=== PATIENT | female | born 1980 | race Caucasian/White ===

== ENCOUNTER 2024-07-03 19:19 | Emergency (ER) | payer BC, OTHER ==
--- OUTSIDE RECORDS SUMMARY | 2024-07-03 19:23 | XMS REPORT | Continuity of Care Document ---
Author Name Unknown Address [address] [facility]. [address] [place], [place] [id number] [place] [address] thconnect Address [address] [facility]. [address] [place] [address] Care Team Providers Care Furniture Refinisher Name Role Phone Norma Prado Attending Clinician Unavailable Referred, Self Attending Clinician Unavailable Libby Attending Clinician UnavailTi Ordonez Attending Clinician Unavailable Theresa Osborne Attending Clinician Unavaila Norma Palacios Admitting Clinician Unavailable Referred, Self Admitting Clinician Unavailable Libby Admitting Clinician Unavaila Ti Brody Admitting Clinician Unavailable Theresa Osborne Admitting Clinician Unavailshahnaz roberson Payers Payer Name Policy Type Policy Number Effective Date Expirati on Date Source SHASTA (O) [id number] 2019 00:00:00 Problems Condition Name Condition Details Condition Category Status Onset Date Resolution Date Last Treatment Date Treating Clinician Comments Source Bacterial vaginosis Bacterial Vaginosis Problem Active 06-07 00:00: 00 [facility] Atypical squamous cells of undetermin ed significan ce on cervical Papanicola ou smear Atypical Squamous Cells of Undetermin ed Significan ce on Cervical Papanicola ou Smear Problem Active 06-07 00:00: 00 [facility] Human papillomav irus deoxyribon ucleic acid detected, high risk on cervical specimen Human Papillomav irus Deoxyribon ucleic Acid Detected, High Risk on Cervical Specimen Problem Active 815 00:00: 00 [facility] Allergies, Adverse Reactions, Alerts Allergy Name Allergy Type Status Severity Reaction(s) Onset Date Inactive Date Treating Clinician Comments Source No Known Drug Allergie s DA Active U N 05-12 00:00: 00 [facility] Social History Smoking Status Start Date Stop Date Source Never Smoker [facility] Medications Ordered Medication Name Filled Medication Name Start Date Stop Date Current Medication? Ordering Clinician Indication Dosage Frequency Signature (SIG) Comments Components Source metoprolol succinate metoprolol succinate No metoprolol succinate [facility] Qunol Bruce CoQ10 Qunol Bruce CoQ10 No Qunol Bruce CoQ10 [facility] Tri-Lo-Bess Tri-Lo-Bess No Tr i-Lo-Mil i [facility] [place] Thyroid 15 mg tablet TAKE 1 TABLET BY MOUTH EVERY DAY [place] Thyroid 15 mg tablet TAKE 1 TABLET BY MOUTH EVERY DAY No [place] Thyroid 15 mg tablet TAKE 1 TABLET BY MOUTH EVERY DAY [facility] losartan 50 mg tablet TAKE 1 TABLET BY MOUTH EVERY DAY losartan 50 mg tablet TAKE 1 TABLET BY MOUTH EVERY DAY No losartan 50 mg tablet TAKE 1 TABLET BY MOUTH EVERY DAY [facility] metronidazo le 500 mg tablet TAKE 1 TABLET BY MOUTH EVERY 12 HOURS FOR 7 DAYS metronidazo le 500 mg tablet TAKE 1 TABLET BY MOUTH EVERY 12 HOURS FOR 7 DAYS No metronidaz ole 500 mg tablet TAKE 1 TABLET BY MOUTH EVERY 12 HOURS FOR 7 DAYS [facility] Tri-Lo-Bess 0.18/0.215/ 0.25 mg-25 mcg tablet TAKE 1 TABLET BY MOUTH EVERY DAY Tri-Lo-Bess 0.18/0.215/ 0.25 mg-25 mcg tablet TAKE 1 TABLET BY MOUTH EVERY DAY No Tri-Lo-Mil i 0.18/0.215 /0.25 mg-25 mcg tablet TAKE 1 TABLET BY MOUTH EVERY DAY [facility] [place] Thyroid [place] Thyroid No [place] Thyroid [facility] losartan losartan No losartan [facility] Vital Signs Vital Name Observation Time Observation Value Comments S ource BP Diastolic 2024-05-11 00:00:00 89 mm[Hg] [facility] BP Systolic 2024-05-11 00:00:00 145 mm[Hg] [facility] BMI (Body Mass Index) 2024-05-11 00:00:00 32.3 kg/m2 [facility] Body Weight 2024-05-11 00:00:00 188 [lb_av] [facility] Height 2024-05-11 00:00:00 64 [in_i] [facility] Procedures Procedure Date / Time Performed Performing Clinicia n Source Procedure on Knee 2022-10-24 00:00:00 [facility] Cholecystectomy (Gallbladder) 2016-10-24 00:00:00 [facility] Medical Encounters Start Date/Time End Date/Time Encounter Type Admission Type Attending [facility] Care Department Encounter ID Source 2024-06-15 08:00:00 2024-06-15 08:00:00 Outpatient Norma Patel [facility] SKIP [id number] 63 [facility] 2024-06-07 00:00:00 2024-06-07 00:00:00 ROB HinesP: [address], [place] [address] , Ph. [facility] [id number] [facility] 2024-05-11 00:00:00 2024-05-11 00:00:00 Ale Monteiro PA: [address], [place] [address] , Ph. [facility]* [id number] [facility] 2023-06-03 12:00:00 2023-06-03 12:00:00 Outpatient Jose Baker [facility] SKIP [id number] [facility] 2023-05-17 00:00:00 2023-05-17 00:00:00 Outpatient FOG_Burke_R Yuni AO AO [id number] [facility] 2023-05-17 00:00:00 2023-05-17 00:00:00 Outpatient FOG_Burke_R Yuni AO AO [id number] [facility] 2023-05-13 07:16:00 2023-05-13 07:16:00 Outpatient Ti Vu [facility] DAYS [id number] [facility] 2023-05-12 00:00:00 2023-05-12 00:00:00 Outpatient Radhames Morrissey AOSM AO [id number] [facility] 2023-05-11 00:00:00 2023-05-11 00:00:00 Outpatient ARABELLA_Matheus Morrissey AOSM AO [id number] [facility] 2023-05-06 00:00:00 2023-05-06 00:00:00 Outpatient Radhames Morrissey AOSM AO [id number] [facility] 2023-05-05 00:00:00 2023-05-05 00:00:00 Outpatient Radhames Morrissey AO AO [id number] [facility] 2022-05-01 12:00:00 2022-05-01 12:00:00 Outpatient ADITI OsborneTheresa [facility] SKIP [id number] [facility] Results Test Description Test Time Test Comments Results Result Co mments Source [facility] HCG [id number] 07:55:00* Test Item Value Reference Range Interpretation Comme nts UR HCG QUAL (test code = HCGQLU) NEGATIVE NEGATIVE Notes Date/Time Note Provider Source 2023-05-13 09:37:00 [facility] Brief Op Note REPORT#:[id number] REPORT STATUS: Signed DATE:05/13/23 TIME: 936 PATIENT: JORGE BENAVIDES UNIT #: [id number] ROOM/BED: : 80 AGE: 42 SEX: F ATTEND: Ti Rabago MD ADM AUTHOR: Lucy Martin * ALL edits or amendments must be made on the electronic/computer document * Op/Inv Proc Note - Brief Pre-procedure diagnosis: Left knee meniscus tear Post-procedure diagnosis: same as pre procedure dx Procedures performed: Left knee arthroscopy, partial lateral meniscectomy Primary Surgeon: Hima Machine Joint Cutter(s): Veronica HAAS Findings: as above Complications: none Estimated blood loss in ml's: none Specimens removed/altered: none at 0938 at 0943 [facility] #:[id number] [facility] 2023-05-13 09:34:00 [id number] [facility] [address] [place] [address] PATIENT NAME: JORGE BENAVIDES ADMIT DATE: 05/13/23 ACCOUNT NO: [id number] ROOM NO: AGE: 42 REPORT TYPE: OPERATIVE REPORT SEX: F ADMITTING PHYSICIAN: ATTENDING PHYSICIAN:Ti Rabago MD OPERATION DATE: 05/13/2023 PREOPERATIVE DIAGNOSIS: Left knee meniscal tear. POSTOPERATIVE DIAGNOSIS: Complex tear of posterior horn and body of lateral meniscus, left knee, S83.282A. OTHER DIAGNOSIS NOTED: A 5 mm loose body, medial gutter, left knee, M23.42. OPERATIVE PROCEDURES PERFORMED: 1. Left knee diagnostic arthroscopy with an arthroscopic partial lateral meniscectomy, 81712. 2. Arthroscopic loose body removal, 98072. SURGEON: Ti Rabago MD VOLUNTEER PATIENT REPRESENTATIVE: ERICA Martin ANESTHESIA: General. TOURNIQUET TIME: 18 minutes. ESTIMATED BLOOD LOSS: None. OPERATIVE FINDINGS: As above. SURGICAL SPECIMENS SENT: None. CLINICAL INDICATIONS: Ms. Benavides is a 42-year-old female from [place], [place], who sustained a traumatic injury to her left knee. As a result, she sustained a prominent tear of the lateral meniscus. She is admitted for arthroscopic meniscectomy. OPERATIVE NARRATIVE: 1. LEFT KNEE DIAGNOSTIC ARTHROSCOPY WITH AN ARTHROSCOPIC PARTIAL LATERAL MENISCECTOMY, 61235. 2. ARTHROSCOPIC LOOSE BODY REMOVAL, 31709. PROCEDURE IN DETAIL: Ms. Benavides was brought in the operative suite at which time she was placed in supine position on the OR table. Routine monitors were established. General anesthesia was delivered. After satisfactory induction of general anesthesia, a tourniquet was applied to the patient's left lower extremity per Ms. Martin and the leg was placed in arthroscopic leg villegas per PATIENT NAME: JORGE BENAVIDES Ms. Martin. The leg was then elevated, exsanguinated, tourniquet insufflated to 300 mmHg. The left knee was then circumferentially prepped and draped in usual sterile fashion per Ms. Martin. Anterior arthroscopic portals were established. Systematic arthroscopic evaluation performed. Patellofemoral evaluation was unremarkable. Medial gutter revealed a 5 mm loose body. The anterior medial portal was widened, the loose body was extracted through the anteromedial portal without difficulty. Medial compartment revealed no meniscal or articular cartilage pathology. The femoral notch revealed an intact anterior as well as posterior cruciate ligament. The lateral compartment revealed complex tearing involving the posterior horn and body of the lateral meniscus. This was resected to a stable configuration utilizing hand and motorized instrumentation. No chondral pathology was noted. The popliteal recess revealed no further loose bodies. Thorough lavage was then performed with lactated Ringer solution. Arthroscopic portals were closed respectively with a subcuticular 4-0 Vicryl suture per Ms. Martin. Intraarticular anesthetic injection was performed by French Veronica. Sterile dressing was applied by French Martin. Ms. Benavides was then extubated and taken to recovery room awake and alert without any anesthetic or operative complications. At the end of the case, sponge and needle counts were correct x2. During the procedure, Ms. Martin was invaluable in positioning the patient along with preparation and draping of the extremity. She was also vital in providing surgical exposure throughout the procedure in addition to closure of the postoperative incisions and application of postoperative dressing along with intra-articular anesthetic injection. Dictated By: Ti Rabago MD Date Dictated: 05/13/2023 09:34:41 Date Transcribed: 05/13/2023 10:13:48 TRINO/KRISTEL Receipt ID: [id number] Authenticated by Ti Rabago MD On 05/13/2023 10:36:15 AM at 1036 PATIENT NAME: JORGE BENAVIDES [facility] 2023-05-12 16:03:00 [id number] [facility] [address] [place] [address] PATIENT NAME: JORGE BENAVIDES ADMIT DATE: 05/13/23 ACCOUNT NO: [id number] ROOM NO: AGE: 42 REPORT TYPE: HISTORY AND PHYSICAL SEX: F ADMITTING PHYSICIAN: ATTENDING PHYSICIAN:Ti Rabago MD ADMISSION DATE: 05/13/2023 09:15:00 ADMITTING DIAGNOSIS: Left knee lateral meniscal tear. HISTORY OF PRESENT ILLNESS: Ms. Benavides is a very pleasant 42-year-old female who sustained a traumatic injury to her left knee. As a result, she has had persistent pain, swelling and catching. Her pain is not improved despite nonoperative treatment. Her clinical as well as radiographic evaluation revealed a prominent tear of the lateral meniscus along with a sprain to medial collateral ligament. She is admitted for arthroscopic meniscectomy. PAST MEDICAL HISTORY: Anxiety, hypertension and thyroid disease. PAST SURGICAL HISTORY: Include cholecystectomy and eye surgery. FAMILY HISTORY: Rheumatoid arthritis, autoimmune disease, osteoporosis and thyroid disease. SOCIAL HISTORY: She does not smoke. She drinks occasionally. ALLERGIES: NO ALLERGIES ARE LISTED. MEDICATIONS: Consist of [place] Thyroid, losartan, metoprolol, sertraline. REVIEW OF SYSTEMS: Negative. PHYSICAL EXAMINATION: VITAL SIGNS: 5 feet 4 inches tall, 81.8 kg. HEENT: Within normal limits. CARDIAC: Regular rate and rhythm. No murmur. CHEST: Clear. ABDOMEN: Benign. BACK: No CVA tenderness. EXTREMITIES: Leg lengths are equal. Full painless motion of both hips. Examination of the left knee reveals an antalgic gait. She has a trace effusion. She has 0 to 120 degrees of motion. She has pain on the medial joint line with positive Kristen sign. She has pain on valgus stress. She has no medial opening. Her distal neurovascular status is intact. DIAGNOSTIC DATA: Radiographic evaluation including an MRI scan demonstrated a prominent tear of the lateral meniscus with grade I sprain to the MCL. PATIENT NAME: JORGE BENAVIDES ASSESSMENT: Symptomatic lateral meniscal tear involving the left knee. SURGICAL PLAN: To proceed with a diagnostic arthroscopy and meniscectomy. I have gone over at length with the patient the associated risks involved with this procedure. She understands that these risks include but not limited to bleeding, infection, neurovascular damage, recurrence of the tear, posttraumatic arthritis, deep vein thrombi leading to pulmonary emboli along with complications secondary to anesthesia. Furthermore, she understands that there are absolutely no guarantees or warranties that she will be pain free as a result of the procedure. All questions have been answered. Informed consent was obtained for left knee arthroscopic meniscectomy. Dictated By: Ti Rabago MD Date Dictated: 05/12/2023 16:03:41 Date Transcribed: 05/12/2023 18:51:30 TRINO/LUIZ Receipt ID: [id number] Authenticated by Ti Rabago MD On 05/13/2023 09:44:27 AM at 0944 PATIENT NAME: JORGE BENAVIDES [facility]
[2024-07-03] MEDS ORDERED: ASPIRIN 81 MG CHEWABLE TABLET ONE (19:51)
[2024-07-03] MEDS ORDERED: NA CHLORIDE 0.9% 1,000 ML ONE (19:51)
[2024-07-03 19:55] LABS: Absolute Basophils 0.1 K/uL (0-0.5); Absolute Eosinophils 0.6 K/uL (0-0.5); Absolute Lymphocytes (CBC) 2.7 K/uL (0.7-4.9); Absolute Monocytes 0.7 K/uL (0.1-1.3); Absolute Neutrophil 7.7 K/uL (1.8-8.0); Basophils % 0.5 % (0-1.3); Eosinophils % 4.7 % (0-4.4); Hemoglobin 12.2 g/dL (12.0-15.0); Lymphocytes % 22.9 % (15.3-44.8); MCH 28.7 pg (27.0-35.0); MCHC 33.1 g/dL (32.0-36.0); MCV 86.7 fL (80-100); MPV 6.9 fL (7.6-11.3); Monocytes % 6.1 % (3.3-12.3); Neutrophils % 65.8 % (41.7-73.7); Platelets 254 thou/uL (152-406); RBC Red Blood Cell Count 4.27 M/uL (3.86-4.86); Red Cell Distribution Width 13.6 % (12.1-15.2)
[2024-07-03 20:19] LABS: D-Dimer 0.311 FEUug/mL (0-0.500)
[2024-07-03 20:22] LABS: ALT/SGPT 41 U/L (13-56); AST/SGOT 12 U/L (15-37); Albumin/Globulin Ratio 1.1 (1.1-1.8); Alkaline Phosphatase 52 U/L (45-117); BUN Blood Urea Nitrogen 12 mg/dL (7-18); Bicarbonate 24 mEq/L (21-32); Bilirubin Total 0.4 mg/dL (0.2-1.0); Globulin 3.8 g/dL (2.3-3.5); Glomerular Filtration Rate 105 ml/min (=/>90); Glucose Level 121 mg/dL (74-106); Lipase 27 U/L (13-75); NT PRO-BNP 7 pg/mL (<125); Protein, Total 7.8 g/dL (6.4-8.2); Sodium Level 136 mEq/L (136-145)
--- NOTE | 2024-07-03 20:33 | RAD REPORT ---
EXAM DESCRIPTION: RAD - Chest Single View - 07/03/2024 8:28 pm CLINICAL HISTORY: CHEST PAIN Chest pain. COMPARISON: No comparisons FINDINGS: Portable technique limits examination quality. The lungs are grossly clear. The heart is normal in size. No displaced fractures. IMPRESSION: No acute intrathoracic process suspected.
[2024-07-03 20:34] LABS: PT Prothrombin Time 11.3 SECONDS (9.4-12.5); Protime INR 1.01
[2024-07-03 20:36] LABS: Bilirubin Direct < 0.2 mg/dL (0-0.2); Bilirubin Indirect, Calculated 0.2 mg/dL (0.2-0.8); Troponin High Sensitivity < 3.0 pg/mL (<58.9)
--- NOTE | 2024-07-03 21:02 | RAD REPORT ---
EXAM DESCRIPTION: CT - Head Brain Wo Cont - 07/03/2024 8:56 pm CLINICAL HISTORY: dizzy Headache, drowsiness, dizziness. COMPARISON: No comparisons TECHNIQUE: All CT scans are performed using dose optimization technique as appropriate and may inclu de automated exposure control or mA/KV adjustment according to patient size. FINDINGS: No intracranial hemorrhage, hydrocephalus or extra-axial fluid collection.No areas of brai n edema or evidence of midline shift. The paranasal sinuses and mastoids are clear. The calvarium is intact. IMPRESSION: No acute intracranial abnormality.
--- NOTE | 2024-07-03 21:28 | EDPHYS ---
Physician Documentation [facility] Name: Crispin Benavides Age: 43 yrs Sex: Female : 1980 Arrival Date: 07/03/2024 Time: 19:19 Bed 5 Private MD: David Prado V ED Physician Marcos Treviño HPI: 07/03 20:05 This 43 yrs old Female presents to ER via Ambulatory with complaints of sp4 Dizziness, Palpitations. 07/04 04:22 Patient presents with dizziness and palpitations. sp4 DATA MANAGEMENT MANAGER: 07/03 21:43 unknown bm8 Historical: - Allergies: 19:36 No Known Allergies; hb - Home Meds: 19:36 Metoprolol Tartrate Oral [Active]; Lisinopril Oral [Active]; hb - PMHx: 19:36 Hypertension; Suzi's; hb - PSHx: 19:36 Cholecystectomy; Knee - Left; Lasik; hb - Immunization history:: Adult Immunizations up to date. - Infectious Disease History:: Denies. - Social history:: Smoking status: Patient denies any tobacco usage or history of. - Family history:: not pertinent. ROS: 07/04 04:22 Constitutional: Negative for fever, chills, and weight loss, positive dizziness and sp4 palpitations All other systems are negative, Exam: 04:22 Constitutional: This is a well developed, well nourished patient who is awake, alert, sp4 and in no acute distress. Head/Face: Normocephalic, atraumatic. Eyes: Pupils equal round and reactive to light, extra-ocular motions intact. Lids and lashes normal. Conjunctiva and sclera are not injected. Cornea within normal limits. Periorbital areas with no swelling, redness, or edema. ENT: Nares patent. No nasal discharge, no septal abnormalities noted. Tympanic membranes are normal and external auditory canals are clear. Oropharynx with no redness, swelling, or masses, exudates, or evidence of obstruction, uvula midline. Mucous membranes moist. Neck: Trachea midline, no thyromegaly or masses palpated, and no cervical lymphadenopathy. Supple, full range of motion without nuchal rigidity, or vertebral point tenderness. Chest/axilla: Normal chest wall appearance and motion. Nontender with no deformity. No lesions are appreciated. Cardiovascular: Regular rate and rhythm with a normal S1 and S2. No gallops, murmurs, or rubs. Normal PMI, no JVD. No pulse deficits. Respiratory: Lungs have equal breath sounds bilaterally, clear to auscultation and percussion. No rales, rhonchi or wheezes noted. No increased work of breathing, no retractions or nasal flaring. Abdomen/GI: Soft, with normal bowel sounds. No distension or tympany. No guarding or rebound. No evidence of tenderness throughout. Back: No spinal tenderness. No costovertebral tenderness. Skin: Warm, dry with normal turgor. Normal color with no rashes, no lesions, and no evidence of cellulitis. MS/ Extremity: Pulses equal, no cyanosis. Neurovascular intact. Full, normal range of motion. Neuro: Awake and alert, GCS 15, oriented to person, place, time, and situation. Cranial nerves II-XII grossly intact. Motor strength 5/5 in all extremities. Sensory grossly intact. Psych: Awake, alert, with orientation to person, place and time. Behavior, mood, and affect are within normal limits 04:23 ECG was reviewed by the Attending Physician. EKG 1946 normal sinus rhythm rate 96 sp4 Vital Signs: 07/03 19:34 BP 156 / 95; Pulse 109; Resp 18; Temp 97.9(TE); Pulse Ox 100% on R/A; Weight 81.65 kg; hb Height 5 ft. 4 in. ; Pain 0/10; 19:45 BP 156 / 95 LA; hb 19:54 BP 156 / 83 RA; hb 20:27 BP 160 / 89; Pulse 99; Resp 16; Pulse Ox 100% on R/A; hb 21:42 BP 129 / 85; Pulse 87; Resp 17; Temp 97.9; Pulse Ox 98% ; Pain 0/10; bm8 19:34 Body Mass Index 30.90 (81.65 kg, 162.56 cm) hb 19:34 Pain Scale: Adult hb 21:42 Pain Scale: Adult bm8 NIH Stroke Scale Scores: 07/04 04:22 NIHSS Score: 0 sp4 [place] Coma Score: 07/03 21:42 Eye Response: spontaneous(4). Motor Response: obeys commands(6). Verbal Response: bm8 oriented(5). Total: 15. 07/04 04:22 Eye Response: spontaneous(4). Motor Response: obeys commands(6). Verbal Response: sp4 oriented(5). Total: 15. MDM: 07/03 19:29 Patient medically screened. [facility] 07/04 04:24 Differential diagnosis: cardiac arrhythmia, generalized weakness, idiopathic dizziness, sp4 near-syncope, syncope. Data reviewed: vital signs, nurses notes, lab test result(s), EKG, radiologic studies, CT scan, plain films. Consideration of Admission/Observation Escalation of care including admission/observation considered. ED course: EXAM DESCRIPTION: CT - Head Brain Wo Cont - 07/03/2024 8:56 pm CLINICAL HISTORY: dizzy Headache, drowsiness, dizziness. COMPARISON: No comparisons TECHNIQUE: All CT scans are performed using dose optimization technique as appropriate and may include automated exposure control or mA/KV adjustment according to patient size. FINDINGS: No intracranial hemorrhage, hydrocephalus or extra-axial fluid collection.No areas of brain edema or evidence of midline shift. The paranasal sinuses and mastoids are clear. The calvarium is intact. IMPRESSION: No acute intracranial abnormality. . ED course: EXAM DESCRIPTION: RAD - Chest Single View - 07/03/2024 8:28 pm CLINICAL HISTORY: CHEST PAIN Chest pain. COMPARISON: No comparisons FINDINGS: Portable technique limits examination quality. The lungs are grossly clear. The heart is normal in size. No displaced fractures. IMPRESSION: No acute intrathoracic process suspected.. 07/03 19:31 Order name: Basic Metabolic Panel; Complete Time: 21:20 [facility] 07/03 19:31 Order name: CBC with Diff; Complete Time: 21:20 [facility] 07/03 19:31 Order name: D-Dimer; Complete Time: 21:20 [facility] 07/03 19:31 Order name: LFT's; Complete Time: 21:20 [facility] 07/03 19:31 Order name: Magnesium; Complete Time: 21:20 [facility] 07/03 19:31 Order name: NT PRO-BNP; Complete Time: 21:20 [facility] 07/03 19:31 Order name: PT-INR; Complete Time: 21:20 [facility] 07/03 19:31 Order name: Troponin HS; Complete Time: 21:20 [facility] 07/03 19:31 Order name: Lipase; Complete Time: 21:20 [facility] 07/03 19:31 Order name: TSH; Complete Time: 21:20 [place] 07/03 20:18 Order name: T4 Free; Complete Time: 21:20 sp4 07/03 19:31 Order name: XRAY Chest (1 view); Complete Time: 21:20 [facility] 07/03 20:18 Order name: CT Head Brain wo Cont; Complete Time: 21:20 sp4 07/03 19:31 Order name: EKG; Complete Time: 19:32 [facility] 07/03 19:31 Order name: Cardiac monitoring; Complete Time: 19:49 [facility] 07/03 19:31 Order name: EKG - Nurse/Tech; Complete Time: 19:49 [facility] 07/03 19:31 Order name: IV Saline Lock; Complete Time: 19:49 [facility] 07/03 19:31 Order name: Labs collected and sent; Complete Time: 19:49 [facility] 07/03 19:31 Order name: O2 Per Protocol; Complete Time: 19:50 [facility] 07/03 19:31 Order name: O2 Sat Monitoring; Complete Time: 19:50 [facility] 07/03 19:31 Order name: Bilateral blood pressure; Complete Time: 19:54 [facility] EC:23 Rate is 96 beats/min. Rhythm is regular, Normal Sinus Rhythm. QRS [place] is Normal. MT sp4 interval is normal. QRS interval is normal. QT interval is normal. No Q waves. T waves are Normal. No ST changes noted. Clinical impression: Normal ECG. Interpreted by me. Reviewed by me. Administered Medications: 07/03 19:54 Drug: NS 0.9% IV 1000 ml IV at 1 bolus Per protocol; 1000 mL bolus Route: IV; Rate: 1 hb bolus; Site: left antecubital; 21:35 Follow up: Response: No adverse reaction; IV Status: Completed infusion; IV Intake: bm8 1000ml 19:54 Drug: Aspirin PO Chewable Tablet 81 mg PO once Route: PO; hb 21:34 Follow up: Response: No adverse reaction bm8 21:42 Drug: Meclizine PO 25 mg PO once Route: PO; bm8 21:42 Follow up: Response: No adverse reaction bm8 Disposition Summary: 07/03/24 21:28 Discharge Ordered Notes: Location: Home sp4 Problem: new sp4 Symptoms: have improved sp4 Condition: Stable sp4 Diagnosis - Bilateral Middle Ear Effusion, Acute Dizziness sp4 Followup: sp4 - With: David Prado MD - When: 7 - 10 days - Reason: Recheck today's complaints Discharge Instructions: - Discharge Summary Sheet sp4 - Dizziness, [id number] sp4 Forms: - Patient Portal Instructions sp4 Prescriptions: - Meclizine 25 mg Oral tablet - take 1 tablet ORAL route every 12 hours As needed PRN dizziness; 30 tablet; sp4 Refills: 0, Product Selection Permitted NIH Stroke Scale - NIH Stroke Score Date: 07/04/2024 Time: 04:22 Total Score = 0 10. Dysarthria (speech clarity - read or repeat words) - 0(Normal) 11. Extinction and Inattention (visual/tactile/auditory/spatial/personal) - 0(No abnormality) 1a. Level of Consciousness (LOC) - 0(Alert) 1b. Level of Consciousness (LOC) (Month \T\ Age) - 0(Both) 1c. LOC Commands (Open \T\ Closes Eyes/Military Technician) - 0(Both) 2. Best Gaze (Lateral Gaze Paresis) - 0(Normal) 3. Visual Field Loss - 0(No visual loss) 4. Facial Palsy - 0(Normal) 5a. Left Arm: Motor (10-second hold) - 0(No drift) 5b. Right Arm: Motor (10-second hold) - 0(No drift) 6a. Left Leg: Motor (5-second hold - always test supine) - 0(No drift) 6b. Right Leg: Motor (5-second hold - always test supine) - 0(No drift) 7. Limb Ataxia (finger/nose \T\ heel/ashley - test with eyes open) - 0(Absent) 8. Sensory Loss (pinprick arms/legs/face) - 0(Normal) 9. Best Language: Aphasia (description/naming/reading) - 0(No aphasia) Initials: sp4 Signatures: Dispatcher [employer] EDMS Ellis Robert MD MD cha Baxter, Heather, RN RN Marcos Treviño MD MD sp4 Sarath Gold, RN RN bm8 Corrections: (The following items were deleted from the chart) 20:19 20:19 Head Brain Wo Cont+CT.RAD.BRZ ordered. EDMS EDMS
--- NOTE | 2024-07-03 21:28 | ER ---
Nurse's Notes [facility] Name: Crispin Benavides Age: 43 yrs Sex: Female : 1980 Arrival Date: 07/03/2024 Time: 19:19 Bed 5 Private MD: David Prado V Diagnosis: Bilateral Middle Ear Effusion, Acute Dizziness Presentation: 07/03 19:34 Chief complaint: Intermittent palpitations and dizziness x 2 days. Coronavirus screen: hb At this time, the client does not indicate any symptoms associated with coronavirus-19. Ebola Screen: No symptoms or risks identified at this time. Initial Sepsis Screen: Does the patient meet any 2 criteria? No. Patient's initial sepsis screen is negative. Does the patient have a suspected source of infection? No. Patient's initial sepsis screen is negative. Risk Assessment: Do you want to hurt yourself or someone else? Patient reports no desire to harm self or others. Onset of symptoms was July 02, 2024. 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 - Infectious Disease History:: Denies. - Social history:: Smoking status: Patient denies any tobacco usage or history of. - Family history:: not pertinent. Screenin:38 [facility] ED Fall Risk Assessment (Adult) History of falling in the last 3 months, hb including since admission No falls in past 3 months (0 pts) Confusion or Disorientation No (0 pts) Intoxicated or Sedated No (0 pts) Impaired Gait No (0 pts) Mobility Assist Device Used No (0 pt) Altered Elimination No (0 pt) Score/Fall Risk Level 0 - 2 = Low Risk Oriented to surroundings, Maintained a safe environment, Educated pt \T\ family on fall prevention, incl call for assistance when getting out of bed. Abuse screen: Denies threats or abuse. Denies injuries from another. Nutritional screening: No deficits noted. Tuberculosis screening: No symptoms or risk factors identified. Assessment: 19:38 General: Appears in no apparent distress. Behavior is calm, cooperative. Pain: Denies hb pain. Neuro: Level of Consciousness is awake, alert, obeys commands, Oriented to person, place, time, situation. Cardiovascular: Reports lightheadedness, palpitations, Patient's skin is warm and dry. Respiratory: Respiratory effort is even, unlabored, Respiratory pattern is regular, symmetrical. GI: No signs and/or symptoms were reported involving the gastrointestinal system. : No signs and/or symptoms were reported regarding the genitourinary system. EENT: No signs and/or symptoms were reported regarding the EENT system. Derm: Skin is pink, warm \T\ dry. Musculoskeletal: No signs and/or symptoms reported regarding the musculoskeletal system. 20:27 Reassessment: Patient appears in no apparent distress at this time. Patient and/or hb family updated on plan of care and expected duration. Pain level reassessed. Patient is alert, oriented x 3, equal unlabored respirations, skin warm/dry/pink. 21:42 Reassessment: Patient appears in no apparent distress at this time. Patient and/or bm8 family updated on plan of care and expected duration. Pain level reassessed. Patient is alert, oriented x 3, equal unlabored respirations, skin warm/dry/pink. pt denies dizziness at this time Patient denies pain at this time. Patient states feeling better. Patient states symptoms have improved. Vital Signs: 19:34 BP 156 / 95; Pulse 109; Resp 18; Temp 97.9(TE); Pulse Ox 100% on R/A; Weight 81.65 kg; hb Height 5 ft. 4 in. ; Pain 0/10; 19:45 BP 156 / 95 LA; hb 19:54 BP 156 / 83 RA; hb 20:27 BP 160 / 89; Pulse 99; Resp 16; Pulse Ox 100% on R/A; hb 21:42 BP 129 / 85; Pulse 87; Resp 17; Temp 97.9; Pulse Ox 98% ; Pain 0/10; bm8 19:34 Body Mass Index 30.90 (81.65 kg, 162.56 cm) hb 19:34 Pain Scale: Adult hb 21:42 Pain Scale: Adult bm8 [place] Coma Score: 21:42 Eye Response: spontaneous(4). Motor Response: obeys commands(6). Verbal Response: bm8 oriented(5). Total: 15. 07/04 04:22 Eye Response: spontaneous(4). Motor Response: obeys commands(6). Verbal Response: sp4 oriented(5). Total: 15. NIH Stroke Scale Scores: 04:22 NIHSS Score: 0 sp4 ED Course: 07/03 19:23 Patient arrived in ED. gm2 19:24 David Prado MD is Private Physician. gm2 19:29 Ellis Robert MD is Attending Physician. laurence 19:34 Janett Pollack, RN is Primary Nurse. hb 19:36 Triage completed. hb 19:38 Arm band placed on. hb 19:38 Patient has correct armband on for positive identification. Provided Education on: use hb of call light . Client placed on continuous cardiac and pulse oximetry monitoring. NIBP monitoring applied. traffic monitor specialist on. Pulse ox on. NIBP on. 19:47 Inserted saline lock: 20 gauge in left antecubital area, using aseptic technique. br2 19:49 EKG done, by ED staff, reviewed by Ellis Robert MD. hb 19:50 Basic Metabolic Panel Sent. hb 19:50 CBC with Diff Sent. hb 19:50 D-Dimer Sent. hb 19:50 LFT's Sent. hb 19:50 Magnesium Sent. hb 19:50 PT-INR Sent. hb 19:50 NT PRO-BNP Sent. hb 19:50 Troponin HS Sent. hb 19:50 TSH Sent. hb 19:50 Lipase Sent. hb 20:05 Attending Physician role handed off by Ellis Robert MD sp4 20:05 Marcos Treviño MD is Attending Physician. sp4 20:30 XRAY Chest (1 view) In Process Unspecified. EDMS 20:58 CT Head Brain wo Cont In Process Unspecified. EDMS 21:27 David Prado MD is Referral Physician. sp4 21:42 No provider procedures requiring assistance completed. IV discontinued, intact, bm8 bleeding controlled, No redness/swelling at site. Pressure dressing applied. Administered Medications: 19:54 Drug: NS 0.9% IV 1000 ml IV at 1 bolus Per protocol; 1000 mL bolus Route: IV; Rate: 1 hb bolus; Site: left antecubital; 21:35 Follow up: Response: No adverse reaction; IV Status: Completed infusion; IV Intake: bm8 1000ml 19:54 Drug: Aspirin PO Chewable Tablet 81 mg PO once Route: PO; hb 21:34 Follow up: Response: No adverse reaction bm8 21:42 Drug: Meclizine PO 25 mg PO once Route: PO; bm8 21:42 Follow up: Response: No adverse reaction bm8 Medication: 19:38 VIS not applicable for this client. hb Intake: 21:35 IV: 1000ml; Total: 1000ml. bm8 Outcome: 21:28 Discharge ordered by sp4 21:42 Discharged to home ambulatory, with family, bm8 21:42 Condition: stable 21:42 Discharge instructions given to patient, family, Instructed on discharge instructions, follow up and referral plans. Demonstrated understanding of instructions, follow-up care, medications, Prescriptions given X 1, 21:44 Patient left the ED. bm8 NIH Stroke Scale - NIH Stroke Score Date: 07/04/2024 Time: 04:22 Total Score = 0 10. Dysarthria (speech clarity - read or repeat words) - 0(Normal) 11. Extinction and Inattention (visual/tactile/auditory/spatial/personal) - 0(No abnormality) 1a. Level of Consciousness (LOC) - 0(Alert) 1b. Level of Consciousness (LOC) (Month \T\ Age) - 0(Both) 1c. LOC Commands (Open \T\ Closes Eyes/Mandrel Puller) - 0(Both) 2. Best Gaze (Lateral Gaze Paresis) - 0(Normal) 3. Visual Field Loss - 0(No visual loss) 4. Facial Palsy - 0(Normal) 5a. Left Arm: Motor (10-second hold) - 0(No drift) 5b. Right Arm: Motor (10-second hold) - 0(No drift) 6a. Left Leg: Motor (5-second hold - always test supine) - 0(No drift) 6b. Right Leg: Motor (5-second hold - always test supine) - 0(No drift) 7. Limb Ataxia (finger/nose \T\ heel/ashley - test with eyes open) - 0(Absent) 8. Sensory Loss (pinprick arms/legs/face) - 0(Normal) 9. Best Language: Aphasia (description/naming/reading) - 0(No aphasia) Initials: sp4 Signatures: Dispatcher [employer] Ellis Hicks MD MD cha Baxter, Heather, RN RN hb Marcos Treviño MD MD sp4 Elisa Hensley gm2 Sarath Gold RN RN bm8 Bushra Qureshi RN RN br2
[2024-07-03] MEDS ORDERED: MECLIZINE HCL 12.5 MG TAB ONE (21:36)
[2024-07-03 22:16] VITALS: TEMP 97.9
[2024-07-03 22:20] VITALS: BP 129/85; O2SAT 98
--- NOTE | 2024-07-05 16:27 | EKG ---
Test Date: 2024-07-03 Test Time: 19:46:50 Business Advisor: HB MEASUREMENT RESULTS: Intervals: Rate: 96 NC: 146 QRSD: 96 QT: 352 QTc: 444 [place]: P: 62 NC: 146 QRS: 7 T: 29 INTERPRETIVE STATEMENTS: Normal sinus rhythm Normal ECG No previous ECG available for comparison Electronically Signed On 07-05-24 16:23:03 CDT by Delroy Morelos
== END 2024-07-03 21:44 | disposition home or self-care (01) ==
LOC: ER 19:19
DX: H65.93 Unspecified nonsuppurative otitis media, bilateral (principal); I10 Essential (primary) hypertension
CPT/HCPCS: 96361; 93005; 85025; 80048; 36415; 83735; 85610; 85379; 80076; 84443; 84484; 84439; 83690; 83880; 70450; 71045; 96360; 99285; J8597; J7030